=== PATIENT | female | born 1980 | race Caucasian/White ===

== ENCOUNTER 2017-09-25 20:45 | Emergency (ER) | payer BC ==
[2017-09-25] MEDS: KETOROLAC 60 MG/2 ML INJ. IM ×2 (21:25)
[2017-09-25] MEDS ORDERED: HYDROcodone/APAP 5/325MG 1 TAB TABLET ×2 (21:40)
[2017-09-25] MEDS: HYDROcodone/APAP 10/325 1 TAB TABLET PO ×2 (21:47)
== END 2017-09-25 21:32 | disposition home or self-care (01) ==
LOC: ER 20:45
DX: S30.861A Insect bite (nonvenomous) of abdominal wall, initial encounter (principal); W57.XXXA Bitten or stung by nonvenomous insect and other nonvenomous arthropods, initial encounter; Y93.89 Activity, other specified; Y92.89 Other specified places as the place of occurrence of the external cause; Y99.8 Other external cause status; R07.89 Other chest pain
CPT/HCPCS: 71046; 96372; 99284-25; J1885